=== PATIENT | male | born 1950 | race Two or more races ===

== ENCOUNTER 2019-08-19 06:02 | Emergency (ER) | payer OTHER ==
[~2019-08-19] VITALS: Ht 157.5 cm; Wt 73.9 kg
[2019-08-19 06:08] VITALS: Ht 157.5 cm; Wt 73.9 kg
[2019-08-19 07:19] LABS: BASOPHIL % 0.6 % (0-2); PLATELET COUNT 327 x10^3mcL (130-400); RED CELL DISTRIBUTION WIDTH 13.3 % (11.5-14.5)
[2019-08-19 07:37] LABS: CARBON DIOXIDE 27.6 mmol/L (21-32); CHLORIDE SERUM 104 mmol/L (98-107); CREATININE SERUM 1.2 mg/dL (0.7-1.3); GFR1 > 60 mL/min; GLUCOSE SERUM 122 mg/dL (74-106); POTASSIUM SERUM 3.6 mmol/L (3.5-5.1); SODIUM SERUM 140 mmol/L (136-145)
[2019-08-19 07:42] LABS: ALBUMIN 3.9 g/dL (3.4-5.0); ALKALINE PHOSPHATASE 73 U/L (46-116); ALT/SGPT 31 U/L (16-63); AST/SGOT 19 U/L (15-37); BILIRUBIN TOTAL 0.29 mg/dL (0.20-1.00); TOTAL PROTEIN, SERUM 7.8 g/dL (6.4-8.2)
[2019-08-19 08:17] LABS: microscopic required? NO
[2019-08-19 08:18] VITALS: BP 128/74
[2019-08-19 08:52] LABS: urine erythrocyte NEGATIVE (NEGATIVE)
== END 2019-08-19 08:18 | disposition home or self-care (01) ==
LOC: ED 06:02
PROVIDERS: Emergency Medicine
DX: R42 Dizziness and giddiness (principal)
CPT/HCPCS: J7042